=== PATIENT | male | born 1985 | race Caucasian/White ===

== ENCOUNTER 2017-10-25 11:12 | Emergency (ER) | payer BC, SELFPAY ==
[2017-10-25 11:13] VITALS: BP 149/97; PULSE 118; RESP 20; TEMP 36.9; O2SAT 96; BMI 36.3
--- NOTE | 2017-10-25 11:32 | HMH.EDSEIZ ---
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 Referrals: Provider,Cyril, [Primary Care Provider] - Caridad Rea [Referring] - - Critical Care Critical Care Time: No Attestation: On , the high probability of a clinically significant, sudden or life threatening deterioration of the following system(s) required my full and direct attention, intervention and personal management. The time I documented below is in addition to time spent performing reported procedures but includes the following listed in this critical care notation. Medical Decision Making Vital Signs: 10/25/17 11:13 10/25/17 12:13 10/25/17 12:30 Temperature 98.5 F Temperature Source Oral Pulse Rate [Right Radial] 118 H 107 H 102 H Respiratory Rate 20 Blood Pressure [Right Arm] 149/97 141/85 135/78 Blood Pressure Mean [Right Arm] 114 103 97 Blood Pressure Source [Right Arm] Automatic Cuff Automatic Cuff Blood Pressure Position [Right Arm] Sitting Sitting 02 Sat by Pulse Oximetry 96 Oxygen Delivery Method Room Air - Lab Data Lab results reviewed: Yes: I reviewed the patient's lab results. Lab Results 10/25/17 11:45: Carbamazepine 8.1 - Jeramy Inquiry Pt receiving controlled substance: No Seizures HPI - General Chief Complaint: Seizure Stated Complaint: seizure Time Seen by Provider: 10/25/17 11:25 Mode of Arrival: EMS Source of Information: EMS Limitations: No Limitations Description of Symptoms (Recalled from ER Triage Doc. by RN): Had a seizure at work. Denies any injuries. a&o at this time. 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 He is alert on arrival with no complaints. States he takes medication; t/c to [facility] in [place] confirms he is on Tegretol. He states his neurologist is Dr. Lee in [place]. His last sz was several months ago. MD complaint: seizure Onset (ago): minute(s) Description of Episode: tonic-clonic movement, post-event confusion -: minutes(s) Witnessed: yes - by bystander Trauma: No Seizure History: known seizure disorder Place: work Possible Precipitating Event: none Associated symptoms: denies other symptoms Treatments prior to arrival: none - Related Data Home Medications Medication Instructions Recorded Confirmed carBAMazepine [Tegretol Xr] 600 mg PO BID 10/25/17 10/25/17 Allergies Allergy/AdvReac Type Severity Reaction Status Date / Time No Known Allergies Allergy Unverified 08/03/17 14:43 [facility] History I have reviewed the patient's past medical history: Yes Medical History: Reports:: Seizures (congenital sz d/o per pt) Denies:: Cancer, Diabetes Mellitus Type 1, Diabetes Mellitus Type 2, MRSA Amputation: No - Social History Educational Level: Completed High School Smoking Status: Never smoker Tobacco Type: smokeless tobacco Alcohol Intake: never - Psychiatric History Expresses thoughts of harming self/others: None Suicide Plan Descriptio
--- NOTE | 2017-10-25 11:36 | ED_ITS ---
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 Referrals: Provider,Cyril, [Primary Care Provider] - Caridad Rea [Referring] - - Critical Care Critical Care Time: No Attestation: On , the high probability of a clinically significant, sudden or life threatening deterioration of the following system(s) required my full and direct attention, intervention and personal management. The time I documented below is in addition to time spent performing reported procedures but includes the following listed in this critical care notation. Medical Decision Making Vital Signs: 10/25/17 11:13 10/25/17 12:13 10/25/17 12:30 Temperature 98.5 F Temperature Source Oral Pulse Rate [Right Radial] 118 H 107 H 102 H Respiratory Rate 20 Blood Pressure [Right Arm] 149/97 141/85 135/78 Blood Pressure Mean [Right Arm] 114 103 97 Blood Pressure Source [Right Arm] Automatic Cuff Automatic Cuff Blood Pressure Position [Right Arm] Sitting Sitting 02 Sat by Pulse Oximetry 96 Oxygen Delivery Method Room Air - Lab Data Lab results reviewed: Yes: I reviewed the patient's lab results. Lab Results 10/25/17 11:45: Carbamazepine 8.1 - Jeramy Inquiry Pt receiving controlled substance: No Seizures HPI - General Chief Complaint: Seizure Stated Complaint: seizure Time Seen by Provider: 10/25/17 11:25 Mode of Arrival: EMS Source of Information: EMS Limitations: No Limitations Description of Symptoms (Recalled from ER Triage Doc. by RN): Had a seizure at work. Denies any injuries. a&o at this time. 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 He is alert on arrival with no complaints. States he takes medication; t/c to [facility] in [place] confirms he is on Tegretol. He states his neurologist is Dr. Lee in [place]. His last sz was several months ago. MD complaint: seizure Onset (ago): minute(s) Description of Episode: tonic-clonic movement, post-event confusion -: minutes(s) Witnessed: yes - by bystander Trauma: No Seizure History: known seizure disorder Place: work Possible Precipitating Event: none Associated symptoms: denies other symptoms Treatments prior to arrival: none - Related Data Home Medications Medication Instructions Recorded Confirmed carBAMazepine [Tegretol Xr] 600 mg PO BID 10/25/17 10/25/17 Allergies Allergy/AdvReac Type Severity Reaction
[2017-10-25 12:13] VITALS: BP 141/85; PULSE 107
[2017-10-25 12:13] LABS: Carbamazepine (Tegretol) 8.1 ug/ml (4.0-12.0)
[2017-10-25 12:30] VITALS: BP 135/78; PULSE 102
[2017-10-25 12:56] VITALS: BP 136/77; PULSE 101; O2SAT 99
[2017-10-25 13:51] VITALS: BP 140/78; PULSE 96; RESP 18; TEMP 36.7; O2SAT 98
== END 2017-10-25 13:25 | disposition home or self-care (01) ==
PROVIDERS: Emergency Provider Emergency Medicine; Family Provider Psychiatry & Neurology Neurology; PCP Family Medicine
DX: R56.9 Unspecified convulsions (principal)
CPT/HCPCS: 36415; 80156; 99283

== ENCOUNTER 2020-05-14 09:30 | Emergency (ER) | payer BC, SELFPAY ==
[2020-05-14 09:51] VITALS: BP 149/89; PULSE 87; RESP 19; TEMP 36.6; O2SAT 98; BMI 38.0
--- NOTE | 2020-05-14 10:01 | HMH.EDUTC ---
[facility] Disposition Clinical Impression: Encounter for laboratory testing for COVID-19 virus Disposition: Home, Self-Care Condition on Discharge: Good Instructions: Preventing the Spread of Coronavirus Discharge Instructions Additional Instructions: You was tested for today for COVID19 your test result should be back within the next 2-4 hours, call back to the [facility] to see if your test results are back and the result You was given a handout with instructions for Self Quarantine and Self isolation for while you wait on test results and what to do if they are positive Return if needed Straight to ER if any life threatening symptoms Referrals: Randy Alcantar MD [Primary Care Provider] - As needed Forms: Work/School Release Time of Disposition: 10:03 Medical Decision Making - Jeramy Inquiry Pt receiving controlled substance: No Jeramy was queried for this patient: No Vital Signs: 05/14/20 09:51 Temperature 97.8 F Temperature Source Oral Pulse Rate [Right Brachial] 87 Respiratory Rate 19 Blood Pressure [Right Arm] 149/89 H Blood Pressure Mean [Right Arm] 109 Blood Pressure Source [Right Arm] Automatic Cuff Blood Pressure Position [Right Arm] Sitting 02 Sat by Pulse Oximetry 98 Oxygen Delivery Method Room Air Orders (Tests/Meds): ORDERS Category Date Time Status Covid-19 Nasal PCR ([facility]) Routine Lab 05/14/20 09:56 Received [facility] HPI - General Stated complaint: covid test Time Seen by Provider: 05/14/20 10:01 Mode of Arrival: Ambulatory Source of Information: Patient Limitations: No Limitations Description of Symptoms (Recalled from Triage Doc. by RN): PATIENT NEEDS COVID TEST AFTER BEING EXPOSED TO CO-WORKER WHO TESTED POSITIVE. DENIES SYMPTOMS HEENT Symptoms (Recalled from RN notes): No Resp Symptoms (Recalled from RN notes): No Skin Symptoms (Recalled from RN notes): No MS Symptoms (Recalled from RN notes): No Functional Status (Recalled from RN notes): WNL - History of Present Illness Provider Complaint: Patient was sent by employer to get tested for COVID after he worked closely with someone who tested positive for COVID yesterday State that he has not been having any symptoms but still needed to be tested - Related Data Home Medications Medication Instructions Recorded Confirmed carBAMazepine [Tegretol Xr] 600 mg PO BID 10/25/17 11/14/19 Allergies Allergy/AdvReac Type Severity Reaction Status Date / Time No Known Allergies Allergy Unverified 08/03/17 14:43 - Worker's Comp Is this a Worker's Comp case?: No [facility] History - Hepatitis A Screen Drug use history?: No High risk sexual behaviors?: No History of sexually transmitted infection?: No Currently employed?: No Childcare worker?: No Do you have indoor plumbing?: Yes Do you have electricity?: Yes Attestation statement:: This patient has been screened for Hepatitis A risk factors. I have reviewed the patient's past medical history: Yes Medical History: Reports:: Seizures (congenital sz d/o per pt) Denies:: Cancer, Diabetes Mellitus Type 1, Diabetes Mellitus Type 2, MRSA Amputation: No - Social History Smoking Status: Never smoker Tobacco Type: smokeless tobacco Alcohol Intake: never Occupational Status: other ROS Obtained: Yes All systems reviewed & no additional complaints, Yes Systems reviewed as appropriate & no additional complaints - Constitutional Constitutional: Reports system reviewed and no additional complaints, except as docu, Denies body ache, Denies chills, Denies fever(s), Denies headache(s) - ENT Ears, Nose, Mouth, and Throat: Reports system reviewed and no additional complaints, except as docu, Denies nasal congestion, Denies nasal discharge, Denies sore throat - Cardiovascular Cardiovascular: Reports system reviewed and no additional complaints, except as docu - Respiratory Respiratory: Yes system reviewed and no additional complaints, except as docu, No cough, No dyspnea - Gastroint
[2020-05-14 10:14] VITALS: BP 149/89; PULSE 87; RESP 19; TEMP 36.6; O2SAT 98
== END 2020-05-14 10:20 | disposition home or self-care (01) ==
PROVIDERS: Emergency Provider Nurse Practitioner; PCP Psychiatry & Neurology Neurology
DX: Z20.828 Contact with and (suspected) exposure to other viral communicable diseases (principal); R56.9 Unspecified convulsions
CPT/HCPCS: 99201; U0003

== ENCOUNTER 2022-02-05 15:49 | Emergency (ER) | payer BC, SELFPAY ==
--- NOTE | 2022-02-05 16:02 | XR_ITS ---
PROCEDURE INFORMATION: Exam: XR Right Humerus Exam date and time: 02/05/2022 4:21 PM Age: 36 years old Clinical indication: Pain; Upper arm; Right; Additional info: PT states that he caught himself while falling yesterday night. TECHNIQUE: Imaging protocol: Radiologic exam of the Right humerus. Views: 2 or more views. COMPARISON: CR SHOU3R [id number] 03/02/2016 6:20 PM FINDINGS: Bones/joints: Normal. Soft tissues: Normal. IMPRESSION: No acute findings.
--- NOTE | 2022-02-05 16:02 | XR_ITS ---
PROCEDURE INFORMATION: Exam: XR Right Forearm Exam date and time: 02/05/2022 4:12 PM Age: 36 years old Clinical indication: Pain; Upper arm; Right; Additional info: PT states that he caught himself while falling yesterday night. TECHNIQUE: Imaging protocol: Radiologic exam of the Right forearm. Views: 2 views. COMPARISON: CR Elbow R 02/05/2022 4:11 PM FINDINGS: Bones/joints: Normal. Soft tissues: Normal. IMPRESSION: No acute findings.
--- NOTE | 2022-02-05 16:02 | XR_ITS ---
PROCEDURE INFORMATION: Exam: XR Right Elbow Exam date and time: 02/05/2022 4:11 PM Age: 36 years old Clinical indication: Injury or trauma; Sprain or strain; Elbow; Right; Injury date: 02/04/2022; Injury details: PT states that he caught himself while falling yesterday night. ; Additional info: Pain TECHNIQUE: Imaging protocol: Radiologic exam of the Right elbow. Views: 3 or more views. COMPARISON: SHOU3R [id number] VIEWS 03/02/2016 6:20 PM FINDINGS: Bones/joints: Normal. Soft tissues: Normal. IMPRESSION: No acute findings.
[2022-02-05 16:46] VITALS: BP 153/106; PULSE 103; RESP 18; TEMP 36.9; O2SAT 96; BMI 40.6
--- NOTE | 2022-02-05 16:53 | HMH.EDUTC ---
[facility] [place] Clinical Impression: Right arm pain, Superficial abrasion Fall Qualifiers: Encounter type: initial encounter Qualified Code(s): W19.XXXA - Unspecified fall, initial encounter Contusion of right elbow Qualifiers: Encounter type: initial encounter Qualified Code(s): S50.01XA - Contusion of right elbow, initial encounter Contusion of right forearm Qualifiers: Encounter type: initial encounter Qualified Code(s): S50.11XA - Contusion of right forearm, initial encounter Disposition: Home, Self-Care Condition on Discharge: Good Instructions: Elbow Sprain, DI for Elbow Pain, Pulled Elbow Additional Instructions: Rest the extremity, apply ice for 15 minutes as tolerated three or four times per day, Wear the nikia wrap for compression, Elevate the extremity as tolerated while you are resting. Take ibuprofen for pain. I sent in a prescription to your pharmacy. Follow up with Dr. Garsia (orthopedics). Sometimes there can be fractures that don't show up well on the first set of x-rays. So, you should follow up if you continue to have symptoms. I put in a referral but you need to call his office and schedule an appointment. Follow up with your regular doctor. GO TO THE ER FOR ANY WORSENING SYMPTOMS Prescriptions: Ibuprofen [Ibuprofen 800mg Tablet] 800 mg PO Q8HP PRN #30 tab PRN Reason: Moderate Pain Transmission Status: Received by [id number] Referrals: Provider,MD Cyril [Primary Care Provider] - Jose Garsia MD [Staff Physician] - Time of Disposition: 17:11 Medical Decision Making - Medical Records Medical records reviewed: No: I reviewed the patient's medical records. - Jeramy Inquiry Pt receiving controlled substance: No Vital Signs: 02/05/22 16:46 02/05/22 17:20 Temperature 98.5 F 98.5 F Temperature Source Oral Pulse Rate 103 H Pulse Rate [Left] 103 H Respiratory Rate 18 18 Blood Pressure 153/106 H Blood Pressure [Right Arm] 153/106 H Blood Pressure Mean [Right Arm] 121 02 Sat by Pulse Oximetry 96 [facility] [place] HPI - General Stated complaint: fell on R arm Time Seen by Provider: 02/05/22 17:00 Description of Symptoms (Recalled from Triage Doc. by RN): patient comes in today for a fall that occurred last night. patient is complaining of pain in his right arm. HEENT Symptoms (Recalled from RN notes): No Resp Symptoms (Recalled from RN notes): No Skin Symptoms (Recalled from RN notes): No MS Symptoms (Recalled from RN notes): Yes Functional Status (Recalled from RN notes): wnl - History of Present Illness Provider Complaint: He states that he fell down earlier today and came down on his right forearm and elbow. He has had pain in those areas snce then. - Related Data Home Medications Medication Instructions Recorded Confirmed carBAMazepine [Tegretol Xr] 600 mg PO BID 10/25/17 11/14/19 Previous Rx's Medication Instructions Recorded Ibuprofen [Ibuprofen 800mg 800 mg PO Q8HP PRN #30 tab 02/05/22 Tablet] Allergies Allergy/AdvReac Type Severity Reaction Status Date / Time No Known Allergies Allergy Verified 02/05/22 16:49 - Worker's Comp Is this a Worker's Comp case?: No [facility] History - Hepatitis A Screen Attestation statement:: This patient has been screened for Hepatitis A risk factors. I have reviewed the patient's past medical history: Yes Medical History: Reports:: Seizures (congenital sz d/o per pt) Denies:: Cancer, Diabetes Mellitus Type 1, Diabetes Mellitus Type 2, MRSA Amputation: No - Social History Smoking Status: Never smoker Tobacco Type: smokeless tobacco Alcohol Intake: never Occupational Status: other ROS Obtained: Yes All systems reviewed & no additional complaints - Constitutional Constitutional: Denies chills, Denies fever(s) - Musculoskeletal Musculoskeletal: Reports as per HPI - Integumentary/Breasts Skin/Breast: Denies redness, Denies rash, Denies wounds - Neurologic
[2022-02-05 17:20] VITALS: BP 153/106; PULSE 103; RESP 18; TEMP 36.9
== END 2022-02-05 17:21 | disposition home or self-care (01) ==
PROVIDERS: Emergency Provider Nurse Practitioner Family
DX: S40.811A Abrasion of right upper arm, initial encounter; S50.01XA Contusion of right elbow, initial encounter; S50.11XA Contusion of right forearm, initial encounter; W19.XXXA Unspecified fall, initial encounter
CPT/HCPCS: 73060; 73080; 73090; 99212; G0463

== ENCOUNTER 2022-04-14 17:58 | Emergency (ER) | payer BC, SELFPAY ==
[2022-04-14 18:00] VITALS: BP 151/102; PULSE 91; RESP 20; TEMP 36.8; O2SAT 98; BMI 40.6
[2022-04-14 18:24] VITALS: BP 128/87; PULSE 92; O2SAT 95
[2022-04-14 18:30] VITALS: BP 133/87; PULSE 90; O2SAT 95
--- NOTE | 2022-04-14 18:39 | XR_ITS ---
PROCEDURE INFORMATION: Exam: XR Lumbosacral Spine Exam date and time: 04/14/2022 6:51 PM Age: 36 years old Clinical indication: Low back pain TECHNIQUE: Imaging protocol: Radiologic exam of the lumbosacral spine. Views: 2 or 3 views. COMPARISON: CR XR THORACIC SPINE 2V 04/14/2022 6:50 PM FINDINGS: Bones/joints: Mild degenerative changes. No acute fracture. Soft tissues: Unremarkable. IMPRESSION: Chronic changes without acute process.
--- NOTE | 2022-04-14 18:39 | XR_ITS ---
PROCEDURE INFORMATION: Exam: XR Thoracic Spine Exam date and time: 04/14/2022 6:50 PM Age: 36 years old Clinical indication: Pain in thoracic spine TECHNIQUE: Imaging protocol: Radiologic exam of the thoracic spine. Views: 2 views. COMPARISON: CR CXR1 CHEST-PORTABLE 04/03/2017 2:43 AM FINDINGS: Bones/joints: Anterior proliferative changes. Mild accentuation of the thoracic kyphosis. No acute fracture. Soft tissues: Unremarkable. IMPRESSION: Chronic changes without acute process.
--- NOTE | 2022-04-14 18:57 | PC.NURSE ---
PT TO XR AT THIS TIME
--- NOTE | 2022-04-14 19:08 | HMH.EDGENADL ---
Discharge Plan Disposition Patient Disposition: Home, Self-Care Condition: Good Prescriptions Prescriptions: New ibuprofen 800 mg tablet 800 mg PO Q8HP PRN (Reason: moderate pain ) Qty: 15 0RF No Action carbamazepine [Tegretol XR] 200 MG tablet extended release 12 hr 600 mg PO BID ibuprofen 800 MG tablet 800 mg PO Q8HP PRN (Reason: Moderate Pain) Qty: 30 0RF Referrals Follow up/Referrals: Kerri Long [Primary Care Provider] - See instructions Activity Restrictions/Add. Instructions Additional Instructions/Restrictions: Ibuprofen for pain. Additional instructions for BACK PAIN: See your physician as soon as possible for further evaluation. Return immediately if back pain becomes intolerable, or if fever, numbness or weakness of your legs, loss of control of your bowels or bladder. Clinical Impressions Clinical Impression: Strain of thoracic spine Discharge ED Provider: Alo Bazzi General Adult HPI General Chief complaint: Back Pain/Injury Stated complaint: AO04/09 back injury Time Seen by Provider: 04/14/22 19:08 Mode of Arrival: Ambulatory Source of Information: Patient Limitations: No Limitations Description of Symptoms (Recalled from ER Triage Doc. by RN): TWISTED BACK ON WEDNESDAY WHILE PUSHING A WHEELBARROW REPORTS MIDDLE BACK PAIN History of Present Illness HPI narrative: States on 5 days ago he was pushing a wheelbarrow when he jerked and twisted his back. Complains of pain in the middle of his back in the lower thoracic spine area. No radiation down the legs. No numbness or weakness of the legs. No loss of bowel or bladder control. No previous back problems. No [id number] medications or other treatments tried. The injury occurred at home. He has been able to work since the injury, in fact he work today. He drives a forklift. Related Data Home Medications Medication Instructions Recorded Confirmed carbamazepine 200 mg 600 mg PO BID seziures 10/25/17 11/14/19 tablet,extended release,12 hr (Tegretol XR) Previous Rx's Medication Instructions Recorded ibuprofen 800 mg tablet 800 mg PO Q8HP PRN Moderate Pain 02/05/22 #30 tabs ibuprofen 800 mg tablet 800 mg PO Q8HP PRN moderate pain 04/14/22 #15 tabs Allergies Allergy/AdvReac Type Severity Reaction Status Date / Time No Known Allergies Allergy Verified 02/05/22 16:49 PFSH PFSH Social History Smoking Status: Never smoker alcohol intake: never current occupational status: other Travel in the last 8 weeks: None ROS Obtained: Yes Systems reviewed as appropriate & no additional complaints except as documented Constitutional Constitutional: Denies weakness Gastrointestinal Gastrointestingal: Denies fecal incontinence Genitourinary Male Genitourinary: Denies urinary incontinence Musculoskeletal Musculoskeletal: Reports back pain, Denies numbness and Denies radiating pain into limb Neurologic Neurologic: Denies focal weakness, Denies numbness and Denies weakness Physical Exam General General appearance: alert and in no apparent distress Head Head exam: atraumatic and normocephalic Eye Eye exam: Present normal appearance and EOMI Neck Neck exam: Present normal inspection and trachea midline Chest Chest inspection: Present normal inspection and symmetric chest wall rise Respiratory Respiratory exam: Absent respiratory distress Cardiovascular Cardiovascular exam: Present regular rate and normal rhythm Back Exam Back exam: Absent tenderness, paraspinal tenderness or vertebral tenderness Neurological Exam Neurological exam: Present alert, oriented X3 and normal gait; Absent motor sensory deficit Psychiatric Psychiatric exam: Present normal affect and normal mood Medical Decision Making Jeramy Inquiry Pt receiving controlled substance: No Vital Signs: 04/14/22 18:00 04/14/22 18:24 04/14/22 18:30 Temperature 98.2 F Temperature Source Oral Pulse
[2022-04-14 20:11] VITALS: BP 135/78; PULSE 89; RESP 16; TEMP 36.8; O2SAT 98
== END 2022-04-14 20:12 | disposition home or self-care (01) ==
PROVIDERS: Emergency Provider Emergency Medicine; PCP Nurse Practitioner Family
DX: S29.012A Strain of muscle and tendon of back wall of thorax, initial encounter (principal); X58.XXXA Exposure to other specified factors, initial encounter; Y92.009 Unspecified place in unspecified non-institutional (private) residence as the place of occurrence of the external cause
CPT/HCPCS: 72070; 72100; 99283

== ENCOUNTER 2023-03-09 00:28 | Day surgery (SDC) | payer BC, SELFPAY ==
[2023-03-09 00:29] VITALS: BP 150/82; PULSE 89; RESP 18; TEMP 36.7; O2SAT 96; BMI 41.8
--- NOTE | 2023-03-09 00:33 | PC.NURSE ---
Dr. Hercules at [facility]
--- NOTE | 2023-03-09 00:35 | XR_ITS ---
PROCEDURE INFORMATION: Exam: XR Chest Exam date and time: 03/09/2023 1:03 AM Age: 37 years old Clinical indication: Other: Food bolus retching TECHNIQUE: Imaging protocol: Radiologic exam of the chest. Views: 1 view. COMPARISON: CR CXR1 CHEST-PORTABLE 04/03/2017 2:43 AM FINDINGS: Lungs: Unremarkable. No consolidation. Pleural spaces: Unremarkable. No pleural effusion. No pneumothorax. Heart/Mediastinum: Unremarkable. No cardiomegaly. Vasculature: Unremarkable. Bones/joints: Unremarkable. IMPRESSION: No acute findings.
--- NOTE | 2023-03-09 00:38 | HMH.EDGENADL ---
Discharge Plan Disposition Patient Disposition: Admitted Condition: Fair Chief Complaint: PAIN Prescriptions Prescriptions: No Action carbamazepine [Tegretol XR] 200 MG tablet extended release 12 hr 600 mg PO BID ibuprofen 800 MG tablet 800 mg PO Q8HP PRN (Reason: Moderate Pain) Qty: 30 0RF ibuprofen 800 mg tablet 800 mg PO Q8HP PRN (Reason: moderate pain ) Qty: 15 0RF Referrals Follow up/Referrals: Kerri Long [Primary Care Provider] - See instructions Clinical Impressions Clinical Impression: Esophagus, foreign body Discharge ED Provider: Stewart Hercules General Adult HPI General Chief complaint: PAIN Stated complaint: feels like food stuck in throat Time Seen by Provider: 03/09/23 00:35 Mode of Arrival: Ambulatory Source of Information: Patient Limitations: No Limitations Description of Symptoms (Recalled from ER Triage Doc. by RN): 37 M presents with probable food bolus from 2029 this evening while eating roast. He has attempted to drink Coke and trying to cough this food bolus up, but has not been successful. NAD. Airway patent History of Present Illness HPI narrative: Patient is a 37-year-old male with no pertinent past medical history presents emergency department for evaluation of a food bolus. History is obtained by patient at bedside. He ingested a large bite of roast at approximately 8:30 PM and has been unable to tolerate p.o. intake including solids and liquids since. Denies current chest pain. No other acute complaints at this time Related Data Allergies Allergy/AdvReac Type Severity Reaction Status Date / Time No Known Allergies Allergy Verified 02/05/22 16:49 [facility] Disclaimer: The information contained in this section may have been updated after the patient was seen, as this information can be updated by other users. Social History Smoking Status: Current every day smoker tobacco type: smokeless tobacco alcohol intake: never current occupational status: other Travel in the last 8 weeks: None ROS Obtained: Yes Systems reviewed as appropriate & no additional complaints except as documented Physical Exam General General appearance: alert and in no apparent distress Head Head exam: atraumatic and normocephalic Eye Eye exam: Present PERRL and EOMI ENT ENT exam: Present mucous membranes moist Neck Neck exam: Present normal inspection Chest Chest inspection: Present normal inspection and symmetric chest wall rise Respiratory Respiratory exam: Present normal lung sounds bilaterally; Absent respiratory distress Cardiovascular Cardiovascular exam: Present regular rate and normal rhythm Abdominal Exam Abdominal exam: Present soft Extremities Exam Extremities exam: Present normal inspection Neurological Exam Neurological exam: Present alert and oriented X3 Psychiatric Psychiatric exam: Present normal affect Skin Skin exam: Present warm and dry Medical Decision Making Jeramy Inquiry Pt receiving controlled substance: No Vital Signs: 03/09/23 00:29 Temperature 98.1 F Temperature Source Oral Pulse Rate [Left] 89 Respiratory Rate 18 Blood Pressure [Right Arm] 150/82 H Blood Pressure Mean [Right Arm] 104 Blood Pressure Source [Right Arm] Automatic Cuff Blood Pressure Position [Right Arm] Supine 02 Sat by Pulse Oximetry 96 Oxygen Delivery Method Room Air Lab Data Lab Results 03/09/23 00:40: WBC 8.9, RBC 5.31, Hgb 15.8, Hct 50.2, MCV 94.5 H, MCH 29.7, MCHC 31.4 L, RDW 12.8, Plt Count 306, MPV 7.6, Neut % (Auto) 67.5, Lymph % (Auto) 21.6, [place] % (Auto) 6.1, Eos % (Auto) 4.1, Baso % (Auto) 0.7, Neut # (Auto) 6.0, Lymph # (Auto) 1.9, [place] # (Auto) 0.5, Eos # (Auto) 0.4, Baso # (Auto) 0.1 03/09/23 00:40 Orders (Tests/Meds): ED MEDICATIONS Discontinued Medications Generic Name Dose Route Start Last Admin Trade Name Freq PRN Reason Stop Dose Admin Glucagon 1 mg 03/09/23 00:35 03/09/23 00:43 Gl
[2023-03-09 00:47] LABS: Basophils # 0.1 K/mm3 (0-0.2); Basophils % 0.7 % (0.1-2.0); Eosinophils # 0.4 K/mm3 (0.0-0.4); Eosinophils % 4.1 % (0.1-12.0); Hematocrit 50.2 % (42.0-52.0); Hemoglobin 15.8 g/dL (14.1-18.0); Lymphocytes # 1.9 K/mm3 (0.7-4.5); Lymphocytes % 21.6 % (10-50); Mean Corpuscular HGB Conc 31.4 g/dL (31.8-35.4); Mean Corpuscular Hemoglobin 29.7 pg (27.0-31.2); Mean Corpuscular Volume 94.5 fl (80-94); Mean Platelet Volume 7.6 fl (7.4-10.4); Monocytes # 0.5 K/mm3 (0.1-1.0); Monocytes % 6.1 % (1.7-9.3); Neutrophils % 67.5 % (37.0-80.0); Platelet Count 306 K/mm3 (142-424); Red Blood Count 5.31 M/mm3 (4.60-6.20); Red Cell Distribution Width 12.8 % (11.5-17.5); White Blood Count 8.9 K/mm3 (4.8-10.8)
[2023-03-09 00:50] LABS: Chloride 104 mmol/L (98-107)
--- NOTE | 2023-03-09 00:50 | PC.NURSE ---
Glucagon did not work. Attending notified
--- NOTE | 2023-03-09 00:50 | PC.NURSE ---
Surgery team paged at this time per .
[2023-03-09 00:51] LABS: Potassium 4.2 mmoL/L (3.5-5.1); Sodium 142 mmol/L (136-145)
--- NOTE | 2023-03-09 00:52 | ECG_ITS ---
APPROVED REPORT Exam: Resting ECG HR:87 bpm ECG Measurements Heart Rate 87 AXES HI 135 P 41 QRSd 89 QRS -27 QT 353 T 50 QTc 397 Conclusion SINUS RHYTHM WITH SINUS ARRHYTHMIA BORDERLINE LEFT AXIS DEVIATION [QRS AXIS < -20] BORDERLINE ECG UNCONFIRMED REPORT Electronically signed by : Don Kwan MD 03/09/2023 21:14:18
[2023-03-09 00:53] LABS: Blood Urea Nitrogen 18 mg/dl (9-20); Creatinine Clearance Estimated 137 mL/min (50-200); Estimated Glomerular Filt Rate 108 ml/min (>60); GFR (African American) 131 ML/MIN (>60)
--- NOTE | 2023-03-09 00:53 | PC.NURSE ---
Call back received from JOELLE Avendaño at [phone] @ [phone]
[2023-03-09 00:54] LABS: Anion Gap 14.2 mEq/L (5-15); Calcium 9.1 mg/dl (8.4-10.2); Carbon Dioxide 28 mmol/L (22.0-30.0); Glucose 122 mg/dl (74-100)
--- NOTE | 2023-03-09 01:10 | PC.NURSE ---
in room with patient at this time.
--- NOTE | 2023-03-09 01:14 | PC.NURSE ---
Received call back from Vicenta @ [phone]
[2023-03-09 01:32] VITALS: BP 137/77; PULSE 89; RESP 19; TEMP 36.7; O2SAT 97
--- NOTE | 2023-03-09 01:32 | PC.NURSE ---
Pt headed to sx at this time.
--- NOTE | 2023-03-09 02:12 | HMH.SCOPE ---
Procedure: Date: 03/09/23 Patient Date of :: 1985 Procedure Performed:: Esophagogastroscopy with foreign body removal Indications:: Esophageal foreign body Performing Provider:: Gilbert Jeffries MD Referring Provider:: Emergency department Sedation:: Monitored anesthesia care Procedure:: After informed consent was obtained the patient was taken to the endoscopy suite. Sedation ensued after the patient was transferred to the left lateral decubitus position. Pulse, blood pressure, and oxygen saturation were monitored throughout the procedure. The endoscope was advanced to the level of the esophageal foreign body. The foreign body was retrieved utilizing the eSuction device. The gastroscope was then advanced back into the gastric lumen. Severe inflammatory changes at the gastroesophageal junction were noted. No obvious sign of injury/perforation was seen. The gastroscope was carefully removed and the patient was transferred to recovery in stable condition. Please see findings and specimens below for detail. Findings:: Foreign body retrieved utilizing the eSuction device Specimens:: None for pathology Recommendations:: Proton pump inhibition Clear liquid diet for 24 hours?followed by full liquid diet for 24 hours?followed by soft diet Complications:: No immediate Estimated blood obtained (mL): 0 Colonoscopy Component Colonoscopy Component Was a colonoscopy performed during today's procedure?: No
[2023-03-09 02:15] VITALS: BP 103/60; PULSE 94; RESP 18; TEMP 36.6; O2SAT 95
[2023-03-09 02:30] VITALS: BP 94/60; PULSE 92; RESP 18; O2SAT 96
[2023-03-09 02:36] VITALS: BP 109/60; PULSE 90; RESP 18; O2SAT 96
[2023-03-09 02:45] VITALS: BP 114/76; PULSE 90; RESP 20; O2SAT 97
--- NOTE | 2023-03-09 07:25 | EXP.ANES.CKL ---
[facility] Disclaimer: The information contained in this section may have been updated after the patient was seen, as this information can be updated by other users. Medical History (Updated 03/09/23 @ 00:58 by Wilfredo Mcnally RN) Seizure disorder Social History Smoking Status: Current every day smoker tobacco type: smokeless tobacco alcohol intake: never substance use type: denies use current occupational status: other Travel in the last 8 weeks: None [facility] Anesthesia Checklist Patient Identification Patient Identification: Verbal (Name & ) Structural Data Admitted From: Home Planned Operative Procedure/s: egd Consent for Planned Operative Procedure(s) Verified: Yes Airway Assessment C-Spine Mobility Assessed: Yes TMJ Mobility Assessed: Yes Dentition: Poor Dentition Neurological Assessment Level of Consciousness: Awake, Alert and Appropriate Anesthesia Plan Anesthesia Risk discussed: Yes Anesthesia Plan: Verified ASA Class: II Anesthesia Type: MAC
== END 2023-03-09 02:45 | disposition home or self-care (01) ==
LOC: ER 00:55 → SDC 01:36
PROVIDERS: Emergency Provider Emergency Medicine; PCP Nurse Practitioner Family; Visit Provider Surgery
PROC: 0DJ08ZZ Inspection of Upper Intestinal Tract, Via Natural or Artificial Opening Endoscopic (ICD-10-PCS; CPT 43235; principal; 2023-03-09 01:40)
DX: T18.108A Unspecified foreign body in esophagus causing other injury, initial encounter (principal); R13.10 Dysphagia, unspecified
CPT/HCPCS: 43247; 71045; 80048; 85025; 93005; J1610

== ENCOUNTER → 2023-05-31 07:41 | Outpatient (CLI) | payer BC, SELFPAY ==
--- NOTE | 2023-05-31 07:41 | FL_ITS ---
FINAL REPORT CLINICAL HISTORY: dysphagia 1.13 fluoro time DAP 1442.05 FINDINGS: ESOPHAGRAM HISTORY: . Dysphagia. PROCEDURE: The patient ingested barium. Effervescent crystals were also administered. 11 radiographs were obtained. Fluoro time: 1 minute 13 seconds DAP:1442.05 uGy.m2 FINDINGS: The esophagus is normal. There is a small sliding typehiatal hernia. There is no gastroesophageal reflux. Peristalsis is normal. A 13 mm barium tablet passes of the esophagus into the stomach without delay. IMPRESSION: Small sliding-type hiatal hernia. Films reviewed , interpreted and dictated by Dr. Davila. Transcribed by Isai Kan PA-C. Reviewed, Interpreted and Dictated by Uday Davila MD Transcribed by MILLI Tyler Authenticated and [facility]
== END ==
PROVIDERS: PCP Nurse Practitioner Family; Visit Provider Surgery
DX: R13.10 Dysphagia, unspecified (principal)
CPT/HCPCS: 74220

== ENCOUNTER 2023-07-12 15:32 | Emergency (ER) | payer BC, SELFPAY ==
--- NOTE | 2023-07-12 16:29 | EXP.UTC ---
Discharge Plan Disposition Patient Disposition: Home, Self-Care Condition: Good Prescriptions Prescriptions: New prednisone 10 mg tablet 10 mg PO DIRECTED 9 Days Qty: 21 0RF Rx Instructions: Take 4 tablets daily for 3 days, then take 2 tablets daily for 3 days, then take 1 tablet daily for 3 days, then stop. benzonatate [benzonatate] 100 mg capsule 100 mg PO TIDP PRN (Reason: Cough) Qty: 30 0RF levofloxacin [levofloxacin] 500 mg tablet 500 mg PO DAILY Qty: 7 0RF guaifenesin [Mucinex] 600 mg tablet extended release 12hr 600 - 1,200 mg PO BIDP PRN (Reason: Congestion) Qty: 30 0RF No Action levetiracetam 500 mg tablet 500 mg PO BID Patient Comments: TAKE 1 TABLET BY MOUTH TWICE DAILY . APPOINTMENT REQUIRED FOR FUTURE REFILLS valsartan 80 mg tablet 80 mg PO HS Patient Comments: TAKE 1 TABLET BY MOUTH ONCE DAILY FOR BLOOD PRESSURE carbamazepine 200 mg tablet extended release 12 hr 600 mg PO BID Patient Comments: TAKE 3 TABLETS BY MOUTH TWICE DAILY . MUST KEEP 05/18/23 APPOINTMENT FOR FUTURE REFILLS Referrals Follow up/Referrals: Kerri Long [Primary Care Provider] - See instructions Activity Restrictions/Add. Instructions Additional Instructions/Restrictions: Drink plenty of fluids. Take tylenol or ibuprofen for pain or fever. Take the medications as directed. Follow up with your regular doctor. GO TO THE ER FOR ANY WORSENING SYMPTOMS Don't start the oral steroids until tomorrow, since you had the shot here today. Clinical Impressions Clinical Impression: Acute bronchitis Stand Alone Forms Stand Alone Forms: Work/School Release Instructions Patient Instructions: Acute Bronchitis, DI for Acute Bronchitis, Ceftriaxone Injection, Dexamethasone Injection Discharge ED Provider: Ethan Strong [facility] HPI General Stated complaint: congestion Time Seen by Provider: 07/12/23 16:29 History of Present Illness Provider Complaint: He states that for the past 2 weeks he has had worsening chest congestion, wheezing and malaise. Related Data Home Medications Medication Instructions Recorded Confirmed carbamazepine 200 mg 600 mg PO BID Seizure control 03/09/23 07/12/23 tablet,extended release,12 hr levetiracetam 500 mg tablet 500 mg PO BID Seizure control 03/09/23 07/12/23 valsartan 80 mg tablet 80 mg PO HS High Cholesterol 03/09/23 07/12/23 Previous Rx's Medication Instructions Recorded benzonatate 100 mg capsule 100 mg PO TIDP PRN Cough #30 caps 07/12/23 guaifenesin 600 mg tablet, 600 - 1,200 mg PO BIDP PRN 07/12/23 extended release 12 hr (Mucinex) Congestion #30 tabs levofloxacin 500 mg tablet 500 mg PO DAILY #7 tabs 07/12/23 prednisone 10 mg tablet 10 mg PO DIRECTED 9 days #21 07/12/23 tabs Allergies Allergy/AdvReac Type Severity Reaction Status Date / Time No Known Allergies Allergy Verified 07/12/23 16:51 [facility] Disclaimer: The information contained in this section may have been updated after the patient was seen, as this information can be updated by other users. Medical History (Updated 07/12/23 @ 17:50 by Ethan Strong APRN) Esophagus, foreign body Seizure disorder Surgical History History of appendectomy History of esophagogastroduodenoscopy (EGD) Family History Other No significant family history Social History Smoking Status: Current every day smoker tobacco type: smokeless tobacco alcohol intake: never substance use type: denies use current occupational status: other Travel in the last 8 weeks: None ROS Obtained: Yes All systems reviewed & no additional complaints except as documented Constitutional Constitutional: Reports chills and Reports fever(s) Eyes Eyes: Denies eye discharge ENT Ears, Nose, Mouth, and T
[2023-07-12 16:30] VITALS: BP 194/86; PULSE 100; RESP 22; TEMP 36.6; O2SAT 93; BMI 42.0
--- NOTE | 2023-07-12 16:36 | XR_ITS ---
PROCEDURE INFORMATION: Exam: XR Chest Exam date and time: 07/12/2023 4:56 PM Age: 38 years old Clinical indication: Cough TECHNIQUE: Imaging protocol: Radiologic exam of the chest. Views: 2 views. COMPARISON: CR XR CHEST PORTABLE 03/09/2023 1:03 AM FINDINGS: Lungs: No evidence of acute pulmonary disease or infiltrates; lung santos appear clear. Pleural spaces: No evidence of pleural effusion, pneumothorax, or pleural thickening in the visualized pleural spaces. Heart/Mediastinum: No evidence of mediastinal widening or cardiac silhouette enlargement; the mediastinum and heart appear within normal limits for contour and size. Diaphragm: There is elevation of the right hemidiaphragm. Bones/joints: There are degenerative changes of the thoracic spine. IMPRESSION: No dense parenchymal consolidation, pleural effusion, or pneumothorax.
[2023-07-12 18:32] VITALS: BP 196/84; PULSE 93; RESP 18; TEMP 36.6; O2SAT 99
== END 2023-07-12 18:32 | disposition home or self-care (01) ==
PROVIDERS: Emergency Provider Nurse Practitioner Family; PCP Nurse Practitioner Family
DX: J20.9 Acute bronchitis, unspecified (principal); R09.89 Other specified symptoms and signs involving the circulatory and respiratory systems; R06.2 Wheezing; R53.81 Other malaise; F17.290 Nicotine dependence, other tobacco product, uncomplicated; G40.909 Epilepsy, unspecified, not intractable, without status epilepticus
CPT/HCPCS: 71046; 87635; 96372; 99212; 99214; G0463; J0696